=== PATIENT | male | born 1965 | race Two or more races ===

== ENCOUNTER 2020-01-26 12:19 | Emergency (ER) | payer OTHER ==
[~2020-01-26] VITALS: Ht 172.7 cm; Wt 74.8 kg
[2020-01-26] MEDS ORDERED: ADULT LOW DOSE81 M1 PO (19:47)
[2020-01-26] MEDS ORDERED: COZAAR25 MG PO (19:47)
== END 2020-01-26 20:37 ==
LOC: ER 12:19
DX: I16.1 Hypertensive emergency (principal); I10 Essential (primary) hypertension; R07.89 Other chest pain; Z20.828 Contact with and (suspected) exposure to other viral communicable diseases

== ENCOUNTER 2022-08-01 12:33 | Emergency (ER) | payer OTHER ==
[~2022-08-01] VITALS: Ht 172.7 cm; Wt 95.3 kg
[~2022-08-01 12:33] MED LIST: ADULT LOW DOSE81 M1 PO; COZAAR25 MG PO
[2022-08-01] MEDS ORDERED: ATORVASTATIN CA20 MG PO (13:02)
[2022-08-01] MEDS ORDERED: IRBESARTAN150 MG PO (13:02)
== END 2022-08-01 20:43 | disposition home or self-care (01) ==
LOC: ER 12:33
DX: R27.8 Other lack of coordination (principal); I10 Essential (primary) hypertension; Z88.0 Allergy status to penicillin